=== PATIENT | male | born 2000 | race African-American/Black ===

== ENCOUNTER 2022-04-04 11:57 | Emergency (ER) | payer SELFPAY ==
--- NOTE | ~2022-04-04 | XR_ITS ---
EXAMINATION: XR chest 2V DATE: 04/04/2022 13:14 INDICATION: Chest pain with inspiration. TECHNIQUE: Frontal and lateral views of the chest were obtained. COMPARISON: None. FINDINGS: The chest demonstrates clear lungs without pneumonia, pleural effusion, or pneumothorax. Th e heart size is normal. IMPRESSION: 1. No acute cardiopulmonary disease. Reviewed, dictated and finalized at location A.
[2022-04-04 12:28] VITALS: BP 127/83; PULSE 70; RESP 16; TEMP 37.2; O2SAT 99
--- NOTE | 2022-04-04 12:35 | ECG_ITS ---
Measurements Intervals [place] Rate: 62 P: 50 MD: 161 QRS: 71 QRSD: 93 T: 50 QT: 354 QTc: 361 Interpretive Statements SINUS RHYTHM WITH SINUS ARRHYTHMIA ST ELEVATION, PROBABLY EARLY REPOLARIZATION [ST ELEVATION WITH NORMALLY INFLECTED T WAVE] NO PREVIOUS ECG AVAILABLE FOR COMPARISON Electronically Signed On 04-05-2022 17:19:33 CDT by Drew Salas M.D.
[2022-04-04 13:26] LABS: Troponin I < 0.012 ng/mL (0.000-0.034)
--- NOTE | 2022-04-04 13:44 | ED.ANXIETY ---
HPI - Anxiety General Chief Complaint: Anxiety Stated Complaint: anxiety with chest discomfort Time Seen by Provider: 04/04/22 12:29 History of Present Illness HPI narrative: 21-year-old male presents the emergency room for evaluation of intermittent chest discomfort for 1 week. Patient states the pain began after attending a of a friend who unexpectedly . Patient denies any radiating pain. Is exacerbated when he takes in a deep breath. Denies any nausea or vomiting, syncopal events or injury. Related Data Allergies Allergy/AdvReac Type Severity Reaction Status Date / Time No Known Allergies Allergy Verified 04/04/22 12:32 Review of Systems Review of Systems: CONSTITUTIONAL: Denies fever, chills, or sweats. EYES: Denies visual changes, redness, or discharge. ENT: Denies rhinorrhea, congestion, sore throat, or otalgia. CARDIOVASCULAR: Reports inspiratory chest pain RESPIRATORY: Denies cough or dyspnea. GASTROINTESTINAL: Denies abdominal pain, nausea, vomiting, or diarrhea. GENITOURINARY: Denies dysuria or hematuria. SKIN: Denies rash or itching. MUSCULOSKELETAL: Denies back pain, joint pain, or myalgia. NEUROLOGIC: Denies headache, numbness, dizziness, or weakness. PSYCHIATRIC: Denies anxiety or depression. [facility] Past Medical History Medical History Allergies Social History Social History Smoking status: Never smoker Alcohol intake: never Substance use: never Gender identity (if verbalized by the patient): Male Exam Narrative: GENERAL: Well-appearing, well-nourished, no physical limitations, and in no acute distress. HEAD: Normocephalic, atraumatic. EYES: Conjunctivae normal, PERRLA and EOMI. CHEST: Clear to auscultation. No respiratory distress. No wheezes rales or rhonchi. HEART: Regular rate and rhythm. No murmur heard. Normal peripheral pulses. EXTREMITIES: Normal range of motion. No edema. No clubbing or cyanosis SKIN: Warm, dry, no rash. No noted wounds NEURO: No focal deficits. Alert and oriented x3. MAEW. CN's II-XI intact bilaterally, normal gait PSYCH: Cooperative. Normal mood and affect. Course Vital Signs Vital signs: Vital Signs Temperature 37.2 C 04/04/22 12:28 Pulse Rate 70 04/04/22 12:28 Respiratory Rate 16 04/04/22 12:28 Blood Pressure 127/83 04/04/22 12:28 Pulse Oximetry 99 04/04/22 12:28 Oxygen Delivery Room Air 04/04/22 12:28 Temperature 37.2 C 04/04/22 12:28 Pulse Rate 70 04/04/22 12:28 Respiratory Rate 16 04/04/22 12:28 Blood Pressure 127/83 04/04/22 12:28 Pulse Oximetry 99 04/04/22 12:28 Oxygen Delivery Room Air 04/04/22 12:28 MDM - Anxiety Lab Data Labs: Lab Results 04/04/22 Range/Units 12:57 Troponin I < 0.012 (0.000-0.034) ng/mL Discharge Plan Discharge Clinical Impression: Anxiety, Grief reaction Patient Disposition: Home, Self-Care Condition: Stable Instructions: Antibiotic Form, Anxiety (ED) Prescriptions: New hydroxyzine HCl 25 mg tablet 25 mg PO TID PRN (Reason: anxiety) Qty: 15 0RF No Action azithromycin 1 gram packet 1 g PO DAILY Qty: 1 0RF Follow-up/Referrals: Ruddy Cummings DO [Primary Care Provider] - Time of Disposition: 13:43 Quality HEART score for chest pain patients History: slightly suspicious ECG: normal Age: < or = to 45 years Risk factors: no risk factors known Troponin: < or = to 1x normal limit Heart score: 0
== END 2022-04-04 13:58 | disposition home or self-care (01) ==
PROVIDERS: Emergency Provider Nurse Practitioner Family; PCP Family Medicine
DX: F43.22 Adjustment disorder with anxiety (principal); R94.31 Abnormal electrocardiogram [ECG] [EKG]
CPT/HCPCS: 36415; 71046; 84484; 93005; 99284